=== PATIENT | male | born 1945 | race Caucasian/White ===

== ENCOUNTER → 2017-02-06 | Outpatient (CLI) | payer MEDICARE, MEDICAID | END | disposition home or self-care (01) | LOC: CFH 11:00 | PROVIDERS: ATTEND Physician Assistant Surgical | DX: M65.9 Synovitis and tenosynovitis, unspecified (principal); M77.32 Calcaneal spur, left foot; M25.472 Effusion, left ankle ==

== ENCOUNTER 2017-08-01 15:35 | Emergency (ER) | payer MEDICARE, MEDICAID ==
[~2017-08-01] VITALS: Ht 175.3 cm; Wt 88.3 kg
[2017-08-01 16:16] LABS: BASOPHILS # (AUTO) 0.04 x10^3/uL (0-0.1); BASOPHILS % (AUTO) 1 % (0-1); EOSINOPHILS # (AUTO) 0.93 x10^3/uL (0-0.4); EOSINOPHILS % (AUTO) 13 % (1-7); LYMPHOCYTES # (AUTO) 1.63 x10^3/uL (1-3.4); LYMPHOCYTES % (AUTO) 22 % (22-44); MD NO; MEAN CORPUSCULAR HEMOGLOBIN 34.4 pg (27.5-34.5); MEAN CORPUSCULAR HGB CONC 34.4 g/dL (33.2-36.2); MEAN CORPUSCULAR VOLUME 100.1 fL (81-97); MEAN PLATELET VOLUME 7.3 fL (7.4-10.4); MONOCYTES # (AUTO) 0.53 x10^3/uL (0.2-0.8); MONOCYTES % (AUTO) 7 % (2-9); NEUTROPHILS % (AUTO) 57 % (42-75); PLATELET COUNT 243 x10^3/uL (130-400); RED BLOOD COUNT 3.45 x10^6/uL (4.38-5.82); RED CELL DISTRIBUTION WIDTH 15.7 % (9.4-14.8)
[2017-08-01] MEDS ORDERED: NITR0.6T4 SL (16:20)
[2017-08-01 16:45] LABS: INTERNATIONAL NORMALIZED RATIO 0.97 (0.93-1.1); PROTHROMBIN TIME 10.1 Seconds (9.6-11.5)
[2017-08-01 16:45] LABS: ALANINE AMINOTRANSFERASE 12 U/L (12-78); ALBUMIN 3.2 g/dL (3.4-5.0); ANION GAP 7 mmol/L (5-15); CALCIUM 8.5 mg/dL (8.5-10.1); CHLORIDE 112 mmol/L (98-107)
[2017-08-01 16:50] LABS: ALKALINE PHOSPHATASE 78 U/L (45-117); BILIRUBIN,TOTAL 0.3 mg/dL (0.2-1.0); TOTAL PROTEIN 7.2 g/dL (6.4-8.2)
[2017-08-01 18:03] VITALS: BP 120/73
== END 2017-08-01 18:06 | disposition home or self-care (01) ==
LOC: ED 16:00
DX: I87.2 Venous insufficiency (chronic) (peripheral) (principal); E88.09 Other disorders of plasma-protein metabolism, not elsewhere classified; R60.0 Localized edema; F17.210 Nicotine dependence, cigarettes, uncomplicated; Z59.0 Homelessness
CPT/HCPCS: 36415; 71045; 80053; 83880; 84550; 85025; 85610; 93005; 93970; 99285

== ENCOUNTER 2017-08-21 11:08 | Emergency (ER) | payer MEDICARE, MEDICAID ==
[~2017-08-21] VITALS: Ht 175.3 cm; Wt 90.7 kg
[~2017-08-21 11:08] MED LIST: NITR0.6T4 SL
[2017-08-21 12:00] LABS: BASOPHILS # (AUTO) 0.02 x10^3/uL (0-0.1); BASOPHILS % (AUTO) 0 % (0-1); EOSINOPHILS # (AUTO) 0.38 x10^3/uL (0-0.4); EOSINOPHILS % (AUTO) 7 % (1-7); LYMPHOCYTES # (AUTO) 1.25 x10^3/uL (1-3.4); LYMPHOCYTES % (AUTO) 22 % (22-44); MD NO; MEAN CORPUSCULAR HEMOGLOBIN 33.7 pg (27.5-34.5); MEAN CORPUSCULAR HGB CONC 33.8 g/dL (33.2-36.2); MEAN CORPUSCULAR VOLUME 99.6 fL (81-97); MEAN PLATELET VOLUME 7.1 fL (7.4-10.4); MONOCYTES # (AUTO) 0.32 x10^3/uL (0.2-0.8); MONOCYTES % (AUTO) 6 % (2-9); NEUTROPHILS # (AUTO) 3.77 x10^3/uL (1.8-6.8); NEUTROPHILS % (AUTO) 66 % (42-75); PLATELET COUNT 245 x10^3/uL (130-400); RED BLOOD COUNT 3.38 x10^6/uL (4.38-5.82); RED CELL DISTRIBUTION WIDTH 14.4 % (9.4-14.8)
[2017-08-21] MEDS ORDERED: SODIUM CHLORIDE FLUSH 10ML SYR IVF ONE (12:00)
[2017-08-21] MEDS ORDERED: ONDANSETRON ODT 4 MG PO ONE (12:00)
[2017-08-21] MEDS ORDERED: MORPHINE SULFATE 4 MG/ML, 1ML IVPush PRN (12:00)
[2017-08-21 12:37] LABS: ALBUMIN 2.9 g/dL (3.4-5.0); ANION GAP 6 mmol/L (5-15); CALCIUM 7.9 mg/dL (8.5-10.1); CHLORIDE 111 mmol/L (98-107)
[2017-08-21 12:42] LABS: ALANINE AMINOTRANSFERASE 15 U/L (12-78); ALKALINE PHOSPHATASE 67 U/L (45-117); BILIRUBIN,TOTAL 0.5 mg/dL (0.2-1.0); TOTAL PROTEIN 6.8 g/dL (6.4-8.2); TROPONIN I < 0.015 ng/mL (0.000-0.045)
[2017-08-21] MEDS ORDERED: MORPHINE SULFATE 4 MG/ML, 1ML ONE (13:13)
[2017-08-21] MEDS ORDERED: ONDANSETRON ODT 4 MG ONE (13:13)
[2017-08-21 13:50] VITALS: BP 130/76
[2017-08-21] MEDS ORDERED: HYDROcodone/APAP 5/325 TABLET PO ONE (14:00)
== END 2017-08-21 13:53 | disposition home or self-care (01) ==
LOC: ED 13:47
DX: R60.0 Localized edema (principal); L03.116 Cellulitis of left lower limb; L03.115 Cellulitis of right lower limb; B35.6 Tinea cruris; Z86.73 Personal history of transient ischemic attack (TIA), and cerebral infarction without residual deficits; M19.90 Unspecified osteoarthritis, unspecified site
CPT/HCPCS: 36415; 71045; 80053; 83880; 84484; 85025; 93005; 93970; 96374; 99285; Q0162

== ENCOUNTER 2018-03-04 09:31 | Emergency (ER) | payer MEDICARE, MEDICAID ==
[~2018-03-04] VITALS: Ht 175.3 cm; Wt 82.7 kg
[2018-03-04 10:35] LABS: BASOPHILS # (AUTO) 0.02 x10^3/uL (0-0.1); BASOPHILS % (AUTO) 0 % (0-1); EOSINOPHILS # (AUTO) 0.26 x10^3/uL (0-0.4); EOSINOPHILS % (AUTO) 5 % (1-7); LYMPHOCYTES % (AUTO) 25 % (22-44); MD NO; MEAN CORPUSCULAR HEMOGLOBIN 35.1 pg (27.5-34.5); MEAN CORPUSCULAR HGB CONC 34.7 g/dL (33.2-36.2); MEAN CORPUSCULAR VOLUME 101.2 fL (81-97); MEAN PLATELET VOLUME 7.8 fL (7.4-10.4); MONOCYTES # (AUTO) 0.27 x10^3/uL (0.2-0.8); MONOCYTES % (AUTO) 5 % (2-9); NEUTROPHILS # (AUTO) 3.56 x10^3/uL (1.8-6.8); NEUTROPHILS % (AUTO) 65 % (42-75); PLATELET COUNT 167 x10^3/uL (130-400); RED BLOOD COUNT 3.83 x10^6/uL (4.38-5.82); RED CELL DISTRIBUTION WIDTH 13.6 % (9.4-14.8)
[2018-03-04 10:47] LABS: ALBUMIN 3.6 g/dL (3.4-5.0); ANION GAP 7 mmol/L (5-15); CALCIUM 8.7 mg/dL (8.5-10.1); CHLORIDE 107 mmol/L (98-107); CREATININE 0.89 mg/dL (0.7-1.3)
[2018-03-04 10:51] LABS: TROPONIN I < 0.015 ng/mL (0.000-0.045)
[2018-03-04 12:35] VITALS: BP 129/69
== END 2018-03-04 12:39 | disposition home or self-care (01) ==
LOC: ED 10:03
DX: R42 Dizziness and giddiness (principal); Z86.73 Personal history of transient ischemic attack (TIA), and cerebral infarction without residual deficits; Z86.718 Personal history of other venous thrombosis and embolism; M19.90 Unspecified osteoarthritis, unspecified site
CPT/HCPCS: 36415; 70450; 71046; 80048; 82040; 84484; 85025; 93005; 99285

== ENCOUNTER 2018-04-10 13:47 | Emergency (ER) | payer MEDICARE, MEDICAID ==
[~2018-04-10] VITALS: Ht 175.3 cm; Wt 80.0 kg
[2018-04-10 14:15] VITALS: BP 95/55
== END 2018-04-10 16:11 | disposition home or self-care (01) ==
LOC: ED 15:00
DX: S93.492A Sprain of other ligament of left ankle, initial encounter (principal); G89.29 Other chronic pain; X58.XXXA Exposure to other specified factors, initial encounter; Y93.89 Activity, other specified; Y92.89 Other specified places as the place of occurrence of the external cause; Y99.8 Other external cause status
CPT/HCPCS: 99284

== ENCOUNTER 2018-05-27 11:12 | Emergency (ER) | payer MEDICARE, MEDICAID ==
[~2018-05-27] VITALS: Ht 175.3 cm; Wt 81.0 kg
[2018-05-27 11:27] VITALS: BP 113/70
== END 2018-05-27 12:25 | disposition home or self-care (01) ==
LOC: ED 12:07
DX: S61.302A Unspecified open wound of right middle finger with damage to nail, initial encounter (principal); L03.011 Cellulitis of right finger; M19.90 Unspecified osteoarthritis, unspecified site; Z86.73 Personal history of transient ischemic attack (TIA), and cerebral infarction without residual deficits; F17.200 Nicotine dependence, unspecified, uncomplicated; X58.XXXA Exposure to other specified factors, initial encounter; Y99.8 Other external cause status; Y93.89 Activity, other specified; Y92.009 Unspecified place in unspecified non-institutional (private) residence as the place of occurrence of the external cause
CPT/HCPCS: 99283

== ENCOUNTER 2018-11-07 11:14 | Emergency (ER) | payer MEDICARE, MEDICAID ==
[2018-11-07 11:17] VITALS: BP 111/70
[2018-11-07] MEDS ORDERED: KETOROLAC 30 MG/1 ML ONE (12:45)
--- NOTE | 2018-11-07 12:53 | NUR ---
Patient/Caregiver given discharge instructions and they have confirmed that they understand the instructions. Patient ambulatory with steady gait.
[2018-11-07] MEDS ORDERED: KETOROLAC 30 MG/1 ML IM ONE (13:00)
== END 2018-11-07 12:54 | disposition home or self-care (01) ==
LOC: ED 12:40
DX: S50.01XA Contusion of right elbow, initial encounter (principal); Z86.73 Personal history of transient ischemic attack (TIA), and cerebral infarction without residual deficits; M19.90 Unspecified osteoarthritis, unspecified site; M10.9 Gout, unspecified; Z86.718 Personal history of other venous thrombosis and embolism; W18.30XA Fall on same level, unspecified, initial encounter; Y93.89 Activity, other specified; Y92.89 Other specified places as the place of occurrence of the external cause; Y99.8 Other external cause status
CPT/HCPCS: 73080; 96372; 99283; J1885

== ENCOUNTER 2019-04-19 11:59 | Emergency (ER) | payer MEDICARE, MEDICAID ==
[~2019-04-19] VITALS: Ht 175.3 cm; Wt 84.0 kg
[2019-04-19 12:28] VITALS: BP 136/72
[2019-04-19] MEDS ORDERED: LIDODERM 5% PATCH TD ONE ×2 (13:30→14:00)
== END 2019-04-19 14:09 | disposition home or self-care (01) ==
LOC: ED 14:00
DX: S50.01XA Contusion of right elbow, initial encounter (principal); M19.90 Unspecified osteoarthritis, unspecified site; M10.9 Gout, unspecified; Z86.39 Personal history of other endocrine, nutritional and metabolic disease; Z86.718 Personal history of other venous thrombosis and embolism; W01.0XXA Fall on same level from slipping, tripping and stumbling without subsequent striking against object, initial encounter; Y93.89 Activity, other specified; Y92.410 Unspecified street and highway as the place of occurrence of the external cause; Y99.8 Other external cause status
CPT/HCPCS: 99283

== ENCOUNTER 2019-07-25 09:36 | Emergency (ER) | payer MEDICARE, MEDICAID ==
[~2019-07-25] VITALS: Ht 175.3 cm; Wt 80.8 kg
--- NOTE | 2019-07-25 09:51 | NUR ---
PT BROUGHT BACK TO ROOM VIA WC.
[2019-07-25] MEDS ORDERED: LIDOCAINE-MPF 1%, 5ML ONE (09:54)
[2019-07-25] MEDS ORDERED: CLINDAMYCIN 300 MG CAPSULE ONE (10:20)
[2019-07-25] MEDS ORDERED: DIPH,PERTUSS(ACELL),TET VAC/PF 0.5 ML IM-VACC ONE ×2 (10:20→10:30)
[2019-07-25] MEDS ORDERED: CLINDAMYCIN 300 MG CAPSULE PO ONE (10:30)
[2019-07-25] MEDS ORDERED: MISOPROSTOL 200 MCG TABLET PO ONE (10:30)
[2019-07-25] MEDS ORDERED: TRANEXAMIC ACID 1,000 MG in SODIUM CHLORIDE 0.9% 100 ML IV ONE (10:30)
--- NOTE | 2019-07-25 10:33 | NUR ---
R TOE WOUND NUMBED, CLEANED, DEBRIDED & BANDAGE APPLIED BY ERP & OIL DIPPER. PT TOLERATED WELL, STATES, "IT FEELS MUCH BETTER". PT MEDICATED PER ORDERS.
[2019-07-25 10:37] VITALS: BP 110/65
[2019-07-25] MEDS ORDERED: NAPR-685 PO (10:50)
[2019-07-25] MEDS ORDERED: GABA300C10 PO (10:50)
[2019-07-25] MEDS ORDERED: TRAZ50TA66 PO (10:50)
--- NOTE | 2019-07-25 10:50 | NUR ---
REPORTED TO ALEX DIAZ.
== END 2019-07-25 11:00 | disposition home or self-care (01) ==
LOC: ED 10:40
DX: L03.031 Cellulitis of right toe (principal); M10.9 Gout, unspecified; M19.90 Unspecified osteoarthritis, unspecified site; Z86.73 Personal history of transient ischemic attack (TIA), and cerebral infarction without residual deficits; G89.29 Other chronic pain; Z86.718 Personal history of other venous thrombosis and embolism
CPT/HCPCS: 64450; 90471; 90715; 99284

== ENCOUNTER 2019-08-26 09:04 | Emergency (ER) | payer MEDICARE, MEDICAID ==
[~2019-08-26] VITALS: Ht 175.3 cm; Wt 76.5 kg
[~2019-08-26 09:04] MED LIST changes: +GABA300C10 PO; +NAPR-685 PO; +TRAZ50TA66 PO
[2019-08-26 09:08] VITALS: BP 109/50
--- NOTE | 2019-08-26 09:16 | NUR ---
PT AMBULATED WITH LINEN FOLDER TO ROOM. STEADY GAIT.
--- NOTE | 2019-08-26 09:20 | NUR ---
PT PRESENTED TO THE ED D/T RIGHT ANKLE PAIN X2 MONTHS. PT STATES INCREASE PAIN AND DECREASE STABILITY ON RIGHT FOOT SINCE THIS AM. PT DENIES ANY TRAUMA TO ANKLE. ERMD AT BEDSIDE EVALUATING PT.
--- NOTE | 2019-08-26 09:33 | NUR ---
PT BEING TRANSPORTED TO RADIOLOGY VIA GURNEY.
--- NOTE | 2019-08-26 09:51 | NUR ---
REPORT TO JOE BLANCAS.
== END 2019-08-26 10:21 ==
LOC: ED 09:45
DX: M25.571 Pain in right ankle and joints of right foot (principal); G89.29 Other chronic pain; M19.90 Unspecified osteoarthritis, unspecified site; Z86.73 Personal history of transient ischemic attack (TIA), and cerebral infarction without residual deficits
CPT/HCPCS: 99283

== ENCOUNTER 2019-09-05 23:59 | Emergency (ER) | payer MEDICARE, MEDICAID ==
[~2019-09-05] VITALS: Ht 175.3 cm; Wt 80.8 kg
[2019-09-06 00:03] VITALS: BP 135/66
[2019-09-06] MEDS ORDERED: LIDOCAINE-MPF 1%, 5ML ONE (00:43)
[2019-09-06] MEDS ORDERED: LIDOCAINE 1%, 10ML INFIL ONE (01:00)
== END 2019-09-06 01:32 | disposition home or self-care (01) ==
LOC: ED 09-06
DX: L60.0 Ingrowing nail (principal); F17.200 Nicotine dependence, unspecified, uncomplicated; Z86.73 Personal history of transient ischemic attack (TIA), and cerebral infarction without residual deficits; Z86.718 Personal history of other venous thrombosis and embolism
CPT/HCPCS: 11730; 99284; J3490

== ENCOUNTER 2019-09-30 15:17 | Emergency (ER) | payer MEDICARE, MEDICAID ==
[~2019-09-30] VITALS: Ht 175.3 cm; Wt 80.5 kg
[2019-09-30 15:26] VITALS: BP 112/73
[2019-09-30] MEDS ORDERED: FLUORESCEIN OPHTHALMIC 1 MG STRIP ONE (16:03)
--- NOTE | 2019-09-30 16:11 | NUR ---
TASK RN: FIRST CONTACT WITH PT. Patient/Caregiver given discharge instructions and they have confirmed that they understand the instructions. Patient ambulatory with steady gait USING CANE. PT LEFT WITH ALL PERSONAL BELONGINGS.
== END 2019-09-30 16:13 | disposition home or self-care (01) ==
LOC: ED 15:55
DX: H10.021 Other mucopurulent conjunctivitis, right eye (principal); M19.90 Unspecified osteoarthritis, unspecified site; F17.210 Nicotine dependence, cigarettes, uncomplicated; Z86.718 Personal history of other venous thrombosis and embolism; Z86.73 Personal history of transient ischemic attack (TIA), and cerebral infarction without residual deficits
CPT/HCPCS: 90471; 99283; 99406

== ENCOUNTER 2019-11-07 11:24 | Emergency (ER) | payer MEDICARE, MEDICAID ==
[~2019-11-07] VITALS: Ht 175.3 cm; Wt 75.5 kg
[2019-11-07 11:26] VITALS: BP 133/75
== END 2019-11-07 12:49 | disposition home or self-care (01) ==
LOC: ED 12:01
DX: M79.672 Pain in left foot (principal); G89.29 Other chronic pain; M19.90 Unspecified osteoarthritis, unspecified site; M10.9 Gout, unspecified; F17.200 Nicotine dependence, unspecified, uncomplicated; Z86.73 Personal history of transient ischemic attack (TIA), and cerebral infarction without residual deficits
CPT/HCPCS: 99282

== ENCOUNTER 2020-08-02 00:52 | Emergency (ER) | payer MEDICAID, MEDICARE ==
[~2020-08-02] VITALS: Ht 175.3 cm; Wt 85.0 kg
[2020-08-02 00:54] VITALS: BP 146/59
[2020-08-02] MEDS ORDERED: LIDOCAINE-MPF 1%, 5ML ONE ×3 (01:24→03:38)
[2020-08-02] MEDS ORDERED: LIDOCAINE-MPF 1%, 5ML INFIL ONE (01:30)
[2020-08-02] MEDS ORDERED: HYDROcodone/APAP 5/325 TABLET ONE (01:58)
[2020-08-02] MEDS ORDERED: HYDROcodone/APAP 5/325 TABLET PO ONE (02:00)
[2020-08-02] MEDS ORDERED: IBUPROFEN 600 MG TABLET ONE (03:36)
[2020-08-02] MEDS ORDERED: OXYcodone/APAP 5/325MG TABLET ONE (03:36)
[2020-08-02] MEDS ORDERED: DIPH,PERTUSS(ACELL),TET VAC/PF 0.5 ML IM-VACC ONE (03:36)
== END 2020-08-02 03:26 | disposition home or self-care (01) ==
LOC: ED 03:20
DX: S63.283A Dislocation of proximal interphalangeal joint of left middle finger, initial encounter (principal); M10.9 Gout, unspecified; R20.0 Anesthesia of skin; Z86.73 Personal history of transient ischemic attack (TIA), and cerebral infarction without residual deficits; Z86.718 Personal history of other venous thrombosis and embolism; X58.XXXA Exposure to other specified factors, initial encounter; Y93.89 Activity, other specified; Y92.89 Other specified places as the place of occurrence of the external cause; Y99.8 Other external cause status
CPT/HCPCS: 26770; 99284